=== PATIENT | male | born 1965 | race African-American/Black ===

== ENCOUNTER 2017-12-22 04:37 | Inpatient (IN) | payer MEDICAID, OTHER ==
--- NOTE | 2017-12-22 04:59 | ED ---
General Adult HPI - General Source: patient, RN notes reviewed Mode of arrival: ambulatory Limitations: no limitations <Jose Mckeon - Last Filed: 12/22/17 04:57> <Jack Morales - Last Filed: 12/22/17 09:46> - General Chief complaint: Psychiatric Symptoms Stated complaint: Mental health Time Seen by Provider: 12/22/17 04:48 - History of Present Illness Initial comments: Patient is a pleasant 52-year-old male presenting to the emergency department for mental health evaluation. Patient states he has been off his medications for around 1 month. Patient states he hears voices. Patient does have suicidal thoughts. Voices do tell him to hurt himself as well as dogs. Voices tell him to hurt all dogs and, no specific dogs. Patient does not have thoughts of hurting other people however does get angry frequently. Patient see shadows at times and does feel paranoid. Patient does have a history of similar symptoms previously associated with his schizophrenia. No physical complaints. Patient does smoke marijuana and drink alcohol. (Jose Mckeon) - Related Data Home Medications Medication Instructions Recorded Confirmed No Known Home Medications [No 12/22/17 12/22/17 Known Home Medications] Allergies Allergy/AdvReac Type Severity Reaction Status Date / Time No Known Allergies Allergy Verified 12/22/17 07:52 Review of Systems ROS Other: All systems not noted in ROS Statement are negative. Constitutional: Denies: fever Eyes: Denies: eye pain ENT: Denies: ear pain Respiratory: Denies: cough Cardiovascular: Denies: chest pain Endocrine: Denies: fatigue Gastrointestinal: Denies: abdominal pain Genitourinary: Denies: dysuria Musculoskeletal: Denies: back pain Skin: Denies: rash Neurological: Denies: weakness Psychiatric: Reports: auditory hallucinations, visual hallucinations, suicidal thoughts <Jose Mckeon - Last Filed: 12/22/17 04:57> ROS Other: All systems not noted in ROS Statement are negative. <Jack Morales - Last Filed: 12/22/17 09:46> ROS Statement: Those systems with pertinent positive or pertinent negative responses have been documented in the HPI. Past Medical History Past Medical History: Hypertension History of Any Multi-Drug Resistant Organisms: None Reported Past Surgical History: No Surgical Hx Reported Past Psychological History: PTSD, Schizophrenia Smoking Status: Current every day smoker Past Alcohol Use History: Daily Past Drug Use History: Marijuana <Jose Mckeon - Last Filed: 12/22/17 04:57> General Exam Limitations: no limitations General appearance: alert, in no apparent distress Head exam: Present: atraumatic Eye exam: Present: normal appearance Neck exam: Present: normal inspection Respiratory exam: Present: normal lung sounds bilaterally Cardiovascular Exam: Present: regular rate, normal rhythm GI/Abdominal exam: Present: soft. Absent: tenderness Extremities exam: Present: normal inspection Neurological exam: Present: alert. Absent: motor sensory deficit Psychiatric exam: Present: normal affect, normal mood Skin exam: Present: normal color <Jose Mckeon - Last Filed: 12/22/17 04:57> Course <Joes Mckeon - Last Filed: 12/22/17 04:57> <Jack Morales - Last Filed: 12/22/17 09:46> Vital Signs 12/22/17 12/22/17 04:40 09:36 Temperature 98.0 F 97.4 F L Pulse Rate 74 78 Respiratory 17 17 Rate Blood Pressure 123/66 109/54 O2 Sat by Pulse 98 96 Oximetry EPS informed me about the patient's admission at around 9:30 AM (Jack Morales) Disposition <Jose Mckeon - Last Filed: 12/22/17 04:57> <Jack Morales - Last Filed: 12/22/17 09:46> Clinical Impression: Psychosis Disposition: ADMITTED IP TO THIS HOSP Condition: Fair
[2017-12-22 10:12] LABS: Amphetamine Screen,Urine Not Detected (NotDetected); Barbiturate Screen,Urine Not Detected (NotDetected); Benzodiazepines Screen,Urine Not Detected (NotDetected); Cocaine Screen,Urine Detected (NotDetected); Methadone Screen, Urine Not Detected (NotDetected); Opiate Screen,Urine Not Detected (NotDetected); Oxycodone Screen, Urine Not Detected (NotDetected); Phencyclidine Screen,Urine Not Detected (NotDetected); Tricyclic Antidepressant,Urine Not Detected (NotDetected); Urn Cannabinoid Scrn Detected (NotDetected)
[2017-12-22] MEDS ORDERED: ZIPRASIDONE 20 MG VIAL IM PRN (10:20)
[2017-12-22] MEDS ORDERED: LORazepam 1 MG TAB PO PRN ×2 (10:20→20:32)
[2017-12-22] MEDS ORDERED: MAGNESIUM HYDROXIDE 2,400 MG/10 ML CUP PO PRN (10:20)
[2017-12-22] MEDS ORDERED: MAG HYDROX/AL HYDROX/SIMETH 30 ML CUP PO PRN (10:20)
[2017-12-22] MEDS: NICOTINE 21MG/24HR PATCH TRANSDERM SCH (11:16)
[2017-12-22 11:31] LABS: Amorphous Sediment,Urine Rare /hpf; Appearance,Urine Turbid (Clear); Bilirubin,Urine Negative (Negative); Blood,Urine Negative (Negative); Color,Urine Yellow; Glucose,Urine (UA) Negative (Negative); Ketones,Urine Trace (Negative); Leukocyte Esterase,Urine Negative (Negative); Mucus,Urine Rare /hpf; Nitrite,Urine Negative (Negative); Protein,Urine Negative (Negative); RBC,Urine 5 /hpf (0-5); Specific Gravity,Urine 1.024 (1.001-1.035); Squamous Epithelial Cell,Urine 3 /hpf (0-4); Uric Acid Crystals,Urine Moderate /hpf; WBC,Urine 1 /hpf (0-5)
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
[2017-12-22 13:12] VITALS: BMI 25.4
[2017-12-22] MEDS: ACETAMINOPHEN TAB 325 MG TAB PO PRN (18:42)
[2017-12-22] MEDS ORDERED: LORazepam 2 MG/ML INJ IM PRN (20:33)
[2017-12-22] MEDS: OLANZapine 5 MG TAB PO SCH (20:51)
--- NOTE | 2017-12-22 20:51 | P.HPMEDMHU ---
History of Present Illness H&P Date: 12/22/17 Chief Complaint: suicidal ideations This is a 52 y/o male with hx of ETOH abuse that was admitted for suicidal ideations. Patient drinks 2 fifths daily Review of Systems no abdominal pain, no nausea, no vomiting all 10 systems reviewed were negative except for what was mentioned in hpi Past Medical History Past Medical History: Hypertension Additional Past Medical History / Comment(s): Migraines, L knee arthritis, "blood clot" on his brain as a with surgery to remove and in hospital 6 months-states has caused some memory issues. History of Any Multi-Drug Resistant Organisms: None Reported Past Surgical History: No Surgical Hx Reported Additional Past Surgical History / Comment(s): Blood clot removed from brain as , colonoscopy. Past Anesthesia/Blood Transfusion Reactions: No Reported Reaction Smoking Status: Current every day smoker - Past Family History Father Additional Family Medical History / Comment(s): Father of a heroin overdose. Mother Family Medical History: Dementia Medications and Allergies Home Medications Medication Instructions Recorded Confirmed Type No Known Home Medications [No 12/22/17 12/22/17 History Known Home Medications] Allergies Allergy/AdvReac Type Severity Reaction Status Date / Time No Known Allergies Allergy Verified 12/22/17 10:24 Physical Exam Vitals: Vital Signs Temp Pulse Pulse Resp BP BP Pulse Ox 12/22/17 10:25 97.8 F 74 16 125/68 98 12/22/17 09:36 97.4 F L 78 17 109/54 96 12/22/17 04:40 98.0 F 74 17 123/66 98 Intake and Output 12/22/17 12/22/17 12/22/17 06:59 14:59 22:59 Other: Weight 78.018 kg 78.018 kg - Constitutional General appearance: no acute distress - EENT Eyes: PERRLA ENT: normal oropharynx - Neck Neck: no lymphadenopathy, no rigidity, no stridor - Respiratory Respiratory: bilateral: CTA, negative: rhonchi, wheezing - Cardiovascular Rhythm: regular Heart sounds: normal: S1, S2 foot Peripheral Edema: absent: None leg Peripheral Edema: absent: None - Gastrointestinal General gastrointestinal: normal bowel sounds, no tenderness - Integumentary Integumentary: normal - Neurologic tremors on exam Neurologic: CNII-XII intact - Musculoskeletal Musculoskeletal: gait normal - Psychiatric Psychiatric: A&O x's 3 Cranial Nerve Examination - Cranial Nerves Cranial Nerve II- Optic: Intact Cranial Nerve III- Oculomotor: Intact Cranial Nerve IV- Trochlear: Intact Cranial Nerve V- Trigeminal: Intact Cranial Nerve - Abducens: Intact Cranial Nerve VII- Facial: Intact Cranial Nerve VIII- Auditory: Intact Cranial Nerve IX- Glossopharyngeal: Intact Cranial Nerve X- Vagus: Intact Cranial Nerve XI- Accessory: Intact Cranial Nerve XII- Hypoglossal: Intact Results Labs: Abnormal Lab Results - Last 24 Hours (Table) 12/22/17 12/22/17 Range/Units 09:30 09:30 Urine Ketones Trace H (Negative) Uric Acid Crystals Moderate H (None) /hpf Amorphous Sediment Rare H (None) /hpf Urine Mucus Rare H (None) /hpf Urine Cocaine Screen Detected H (NotDetected) U Marijuana (THC) Screen Detected H (NotDetected) Thrombosis Risk Factor Assmnt - Choose All That Apply Any of the Below Risk Factors Present?: Yes Other Risk Factors: No Other congenital or acquired thrombophilia - If yes, enter type in comment: No Assessment and Plan (1) Alcohol withdrawal Narrative/Plan: start CIWA Current Visit: Yes Status: Acute Code(s): F10.239 - ALCOHOL DEPENDENCE WITH WITHDRAWAL, UNSPECIFIED SNOMED Code(s): 239342910 (2) Suicidal ideation Narrative/Plan: per psych Current Visit: Yes Status: Acute Code(s): R45.851 - SUICIDAL IDEATIONS SNOMED Code(s): 1191449 (3) Alcohol abuse Narrative/Plan: patient interested in quitting Current Visit: Yes Status: Acute Code(s): F10.10 - ALCOHOL ABUSE, UNCOMPLICATED SNOMED Code(s): 62506643
[2017-12-23] MEDS: NICOTINE 21MG/24HR PATCH TRANSDERM SCH (08:17)
[2017-12-23 09:14] LABS: Basophils % (A) 0 %; Eosinophils # (A) 0.2 k/uL (0-0.7); Eosinophils % (A) 3 %; Lymphocytes % (A) 27 %; MCH 28.5 pg (25.0-35.0); Mean Platelet Volume 6.8; Monocytes # (A) 0.4 k/uL (0-1.0); Monocytes % (A) 6 %; Neutrophils # (A) 4.4 k/uL (1.3-7.7); Neutrophils % (A) 62 %; Platelet Count 314 k/uL (150-450); RDW 13.6 % (11.5-15.5); WBC 7.2 k/uL (3.8-10.6)
[2017-12-23 09:36] LABS: ALT 18 U/L (21-72); AST 20 U/L (17-59); Albumin 3.9 g/dL (3.5-5.0); Alkaline Phosphatase 96 U/L (38-126); Anion Gap 9 mmol/L; Bilirubin, Delta 0.4 mg/dL (0.0-0.2); Bilirubin,Unconjugated 0.5 mg/dL (0.0-1.1); Blood Urea Nitrogen 14 mg/dL (9-20); Calcium 9.3 mg/dL (8.4-10.2); Carbon Dioxide 29 mmol/L (22-30); Chloride 102 mmol/L (98-107); Cholesterol 189 mg/dL (<200); Glucose 113 mg/dL (74-99); HDL Cholesterol 89 mg/dL (40-60); LDL Cholesterol,Calculated 72 mg/dL (0-99); Potassium 4.9 mmol/L (3.5-5.1); Sodium 140 mmol/L (137-145); Total Bilirubin 0.9 mg/dL (0.2-1.3); Total Protein 7.7 g/dL (6.3-8.2); Triglycerides 142 mg/dL (<150)
[2017-12-23] MEDS ORDERED: hydrOXYzine PAMOATE 25 MG CAP PO PRN (09:39)
--- NOTE | 2017-12-23 09:51 | P.PN ---
Progress Note - Text Progress Note Date: 12/23/17 Patient was seen for follow-up examination. He was laying down in his bed when I called him. When I asked him for the reasons for laying down and not going to the group, he said he was in the group, was called to sign some papers and then he did not return to the group. He was again advised to go to the groups and school. He is still going on. After a few minutes he got up and went in a different direction than going towards a group. He said he took Zyprexa 5 mg last night at night 8 made him sleep quite soundly. He said the voices have RV slowed down and that he can handle them today. He had a physical examination by general medical doctor yesterday who had put him on when necessary Ativan by mouth and IM in spite of the fact that this patient has an extensive history of alcohol and drug abuse along with extensive history of antisocial behavior. This is a black ambulatory male with fair hygiene. He is fairly cooperative. He does not show any psychomotor agitation or retardation. His speech is spontaneous and goal-directed. His mood is euthymic to cheerful and affect is appropriate. He denies suicide and homicide thoughts. He reports of auditory hallucinations but he does not have any objective signs of psychosis. He is fairly well oriented with adequate memory concentration etc. Plan: Change when necessary Ativan to when necessary Vistaril. Continue Zyprexa 5 mg at bedtime, groups and other therapies.
[2017-12-23] MEDS: ACETAMINOPHEN TAB 325 MG TAB PO PRN (13:40)
[2017-12-23] MEDS: LORazepam 1 MG TAB PO PRN ×2 (13:54→17:51)
[2017-12-23 17:39] LABS: Hemoglobin A1C 4.7 % (4.0-6.0)
[2017-12-23] MEDS: OLANZapine 5 MG TAB PO SCH (20:52)
[2017-12-24] MEDS: LORazepam 1 MG TAB PO PRN ×2 (09:24→16:56)
[2017-12-24] MEDS: NICOTINE 21MG/24HR PATCH TRANSDERM SCH (09:24)
--- NOTE | 2017-12-24 09:43 | P.PN ---
Progress Note - Text Progress Note Date: 12/24/17 Interval History: Patient is a 52-year-old male who is being seen in [facility] over the weekend. Patient reports that he continues to hear auditory hallucinations that tell him to hurt dogs and he is trying to resist the voices. He states that he is feeling a little shaky, had night sweats last night but no nausea and vomiting and is able to eat without difficulty. Patient reports that he slept fairly well last evening. Patient states that he continues to have thoughts that people are out to try to hurt him and this is why he always stays secluded. Mental Status: Appearance/Attitude: Patient is dressed in a hospital gown, makes good eye contact and was cooperative. Behavior: Patient did not exhibit any psychomotor agitation or retardation. Speech/Language: Patient's speech was spontaneous of normal volume and rhythm and he was coherent Thought Process: Patient was goal-directed there is no evidence of loose association or flight of ideas. Thought Content: Patient states that the auditory hallucinations persist and they keep telling him to hurt dogs but he resists, he denies any visual hallucination and states that he is paranoid that people are trying to hurt him and this is why he always stays secluded. Patient states that he had night sweats last night, no nausea and vomiting and some tremulousness this morning. Patient states that he did eat this morning and has had no difficulty with his appetite. He reports no side effects from the medication. Suicidal/Homicidal Ideation: Patient denies any suicidal or homicidal ideation at this time Sensorium/Cognition: Patient is alert and oriented to person, place, and time and his recent and remote memory are grossly intact Mood/Affect: Patient's mood is slightly guarded and his affect is appropriate to his mood Insight/Judgment: Patient's insight and judgment are fair Assessment: Patient reports he continues to have auditory hallucination and states that he resists the voices telling him to hurt dogs. Patient requested that his Zyprexa be increased. Patient states that he is having night sweats and some tremulousness but is able to eat and reports no nausea and vomiting. Patient has been taking Ativan as needed for withdrawal symptoms. Patient states he will try to attend groups and activities. Plan: Will increase patient's Zyprexa to 7-1/2 mg at bedtime, patient states he was taking 10 mg at bedtime in the past. Patient will continue on Ativan as needed for withdrawal symptoms. Patient continues to require hospitalization to further target his psychotic symptoms.
[2017-12-24] MEDS: ACETAMINOPHEN TAB 325 MG TAB PO PRN (16:59)
[2017-12-24] MEDS: AMMONIUM LACTATE 12% LOTION 225 GM BTL TOPICAL SCH (20:03)
[2017-12-24] MEDS: OLANZapine 2.5 MG TAB PO SCH (20:03)
[2017-12-25 06:53] VITALS: RESP 16
[2017-12-25] MEDS: NICOTINE 21MG/24HR PATCH TRANSDERM SCH (09:49)
[2017-12-25] MEDS: ACETAMINOPHEN TAB 325 MG TAB PO PRN (09:50)
[2017-12-25] MEDS: LORazepam 1 MG TAB PO PRN (09:50)
[2017-12-25] MEDS: AMMONIUM LACTATE 12% LOTION 225 GM BTL TOPICAL SCH ×2 (09:51→20:24)
[2017-12-25] MEDS: CLOTRIMAZOLE 1% CREAM 15 GM TUBE TOPICAL SCH ×2 (09:51→20:24)
--- NOTE | 2017-12-25 11:03 | P.PN ---
Progress Note - Text Progress Note Date: 12/25/17 Interval History: Patient is a 52-year-old male who is being seen in weekend coverage. Patient states that he did not have any night sweats and is not as shaky this morning. He states that he is interested in attending inpatient alcohol rehab after discharge. Patient states that the increase in the Zyprexa has decreased the auditory hallucinations and he thinks he slept better last night because of that. Patient reports that he is eating better and did not report any nausea. Patient had no other complaints at this time. Mental Status: Appearance/Attitude: Patient is dressed in a hospital gown, makes good eye contact and is cooperative. Behavior: Patient does not exhibit any psychomotor agitation or retardation. Speech/Language: Patient's speech is spontaneous of normal volume and rhythm and he is coherent. Thought Process: Patient is goal-directed there is no evidence of loose associations or flight of ideas. Thought Content: Patient denies any visual hallucinations and states that the auditory hallucinations are decreasing and he is able to ignore them. He denies any paranoid or delusional ideation. Patient states that he slept better last night, hadnight sweats and is not as tremulous this morning. He states that his sleep was better. Suicidal/Homicidal Ideation: Patient reports no current suicidal or homicidal ideation Sensorium/Cognition: Patient is alert and oriented to person, place, and time and his recent and remote memory are grossly intact. Mood/Affect: Patient's mood is pleasant and his affect is appropriate Insight/Judgment: Patient's insight and judgment are fair Assessment: Patient states that he is interested in inpatient alcohol rehab after his release from the hospital. Patient states that the increase in the Zyprexa decreased the auditory hallucinations and he is able to ignore them. He states he is feeling better this morning is less tremulous, and reports no nausea and states that he did not have any night sweats and his sleep was much better. Patient states that he is feeling better and his vital signs are improved. He reported no side effects from the medication. Plan: Patient will continue on Zyprexa 7-1/2 mg at bedtime and patient will discuss inpatient alcohol rehab with social work. Patient continues to require hospitalization to further stabilize his mood and psychotic symptoms. Patient was encouraged to attend groups and activities.
[2017-12-25] MEDS: OLANZapine 2.5 MG TAB PO SCH (20:32)
[2017-12-26 06:39] VITALS: BP 107/56; PULSE 57; TEMP 97.9
[2017-12-26] MEDS: AMMONIUM LACTATE 12% LOTION 225 GM BTL TOPICAL SCH (08:55)
[2017-12-26] MEDS: NICOTINE 21MG/24HR PATCH TRANSDERM SCH (08:55)
[2017-12-26] MEDS: CLOTRIMAZOLE 1% CREAM 15 GM TUBE TOPICAL SCH (08:55)
--- NOTE | 2017-12-26 11:31 | P.DS ---
Providers Date of admission: 12/22/17 09:34 Expected date of discharge: 12/26/17 Attending physician: Luz Marina Ambrosio Consults: 12/22/17 10:20 Consult Physician Routine Consulting Provider: Daryl Physician Consult Reason/Comments: H & P and medical care Do you want consulting provider notified?: Yes Primary care physician: Stated None Hospital Course: Patient had his psychiatric evaluation, physical examination and psychosocial evaluation. After psychiatric evaluation he was started on Zyprexa 5 mg at bedtime per his request for his reported hallucinations. He took Zyprexa without any adverse effect. It was increased to 7.5 mg a day by the weekend psychiatrist. He received when necessary Ativan for withdrawal symptoms from alcohol. Patient attended groups and interacted with peers and staff. He did not show any behavior problems, continued to feel better and has been free of suicide thoughts. Apparently he was in rehab a month ago before he went to the [facility]. He said he cannot afford to go back to [facility] since he does not have any money to pay them $100 a week. When he was asked how did it pay when he was staying here, he said food stamps. But when he was told that he cannot pay the rent with food stamps he sascha a blank. He also said he wants to go to rehab. He was advised to apply for the rehab and go to the intermediate before he can go to the rehab. Patient was treated for tenia pedis with Lotrimin and ammonium lactate lotions. Condition on discharge: This is a black ambulatory male with strong foot and breath odor. He does not show any psychomotor agitation or retardation. His speech is spontaneous relevant and goal-directed. His mood is euthymic to cheerful and affect is appropriate. He denies suicide and homicide thoughts. He does not have any clinical evidence of hallucinations or delusional thinking. He is well oriented with adequate memory concentration general fund of knowledge etc. His insight and judgment are improving. Diagnosis on discharge: Adjustment disorder unspecified F 43.20. Alcohol use disorder severe F 10.20. Cannabis use disorder moderate to severe F 12.20. Cocaine use disorder moderate to severe F 14.20. Antisocial personality disorder F 60.2. Probable malingering Z 76.5. NKDA. Tenia pedis. 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 Patient Condition at Discharge: Stable Plan - Discharge Summary Discharge Rx Participant: No New Discharge Prescriptions: New Ammonium Lactate Lotion [Lac-Hydrin 12% Lotion] 1 applic TOPICAL BID 30 Days #60 applic Clotrimazole Cream [Lotrimin Cream] 1 applic TOPICAL BID 30 Days #60 applic OLANZapine [ZyPREXA] 7.5 mg PO HS 30 Days #30 tab Discharge Medication List Ammonium Lactate Lotion [Lac-Hydrin 12% Lotion] 1 applic TOPICAL BID 30 Days # 60 applic 12/26/17 [Rx] Clotrimazole Cream [Lotrimin Cream] 1 applic TOPICAL BID 30 Days #60 applic 03/08 [Rx] OLANZapine [ZyPREXA] 7.5 mg PO HS 30 Days #30 tab 12/26/17 [Rx] Follow up Appointment(s)/Referral(s): None,Stated [Primary Care Provider] - 1-2 days
== END 2017-12-26 14:44 | disposition home or self-care (01) | DRG 882 ==
LOC: EC 04:37 → 3MHU 09:34
PROVIDERS: ADMIT Psychiatry & Neurology Psychiatry; ATTEND Psychiatry & Neurology Psychiatry
DX: F43.20 Adjustment disorder, unspecified (principal); R45.851 Suicidal ideations; F60.2 Antisocial personality disorder; G47.00 Insomnia, unspecified; I10 Essential (primary) hypertension; M17.11 Unilateral primary osteoarthritis, right knee; F43.10 Post-traumatic stress disorder, unspecified; F17.200 Nicotine dependence, unspecified, uncomplicated; F12.90 Cannabis use, unspecified, uncomplicated; F14.90 Cocaine use, unspecified, uncomplicated; Z76.5 Malingerer [conscious simulation]; Z72.89 Other problems related to lifestyle; Z82.0 Family history of epilepsy and other diseases of the nervous system; Z82.49 Family history of ischemic heart disease and other diseases of the circulatory system; Z81.8 Family history of other mental and behavioral disorders
CPT/HCPCS: 80053; 80061; 80306; 81001; 82075; 82248; 83036; 84443; 85025; 99285

== ENCOUNTER 2018-04-22 14:46 | Inpatient (IN) | payer MEDICAID, OTHER ==
--- NOTE | 2018-04-22 15:22 | ED ---
General Adult HPI - General Chief complaint: Psychiatric Symptoms Stated complaint: EPS eval Time Seen by Provider: 04/22/18 14:50 Source: patient, RN notes reviewed Mode of arrival: ambulatory Limitations: no limitations - History of Present Illness Initial comments: This is a 52-year-old male with past medical history significant for mental illness. Patient comes in today because been out of his medication for the last 4 months he states more recently he's been hearing more more voices are telling him to hurt himself and he is becoming fearful that he might hurt himself. Patient states today he drank about a fifth a day. Patient also states he did cocaine 2 nights ago. Patient states he hasn't drink at all today. Patient denies any physical complaints today. Patient denies headache patient denies numbness weakness. Patient denies any lightheadedness dizziness or near syncopal episode. Patient denies any chest pain difficulty breathing shortness of breath or palpitations. Patient denies any recent fever chills or cough. Patient denies abdominal pain patient denies nausea vomiting diarrhea. Patient denies any skin lesions rashes or any areas of erythema. Patient denies any recent injury or trauma. - Related Data Home Medications Medication Instructions Recorded Confirmed No Known Home Medications 04/22/18 04/22/18 Allergies Allergy/AdvReac Type Severity Reaction Status Date / Time No Known Allergies Allergy Verified 04/22/18 15:39 Review of Systems ROS Statement: Those systems with pertinent positive or pertinent negative responses have been documented in the HPI. ROS Other: All systems not noted in ROS Statement are negative. Past Medical History Past Medical History: Hypertension Additional Past Medical History / Comment(s): Migraines, L knee arthritis, "blood clot" on his brain as a with surgery to remove and in hospital 6 months-states has caused some memory issues. History of Any Multi-Drug Resistant Organisms: None Reported Past Surgical History: No Surgical Hx Reported Additional Past Surgical History / Comment(s): Blood clot removed from brain as , colonoscopy. Past Anesthesia/Blood Transfusion Reactions: No Reported Reaction Past Psychological History: PTSD, Schizophrenia Smoking Status: Current every day smoker Past Alcohol Use History: None Reported Past Drug Use History: None Reported - Past Family History Father Additional Family Medical History / Comment(s): Father of a heroin overdose. Mother Family Medical History: Dementia General Exam - General Exam Comments Initial Comments: GENERAL: Patient is well-developed and well-nourished. Patient is nontoxic and well- hydrated and is in no acute distress. ENT: Neck is soft and supple. No significant lymphadenopathy is noted. Oropharynx is clear. Moist mucous membranes. Neck has full range of motion without eliciting any pain. EYES: The sclera were anicteric and conjunctiva were pink and moist. Extraocular movements were intact and pupils were equal round and reactive to light. Eyelids were unremarkable. PULMONARY: Unlabored respirations. Good breath sounds bilaterally. No audible rales rhonchi or wheezing was noted. CARDIOVASCULAR: There is a regular rate and rhythm without any murmurs gallops or rubs. ABDOMEN: Soft and nontender with normal bowel sounds. No palpable organomegaly was noted. There is no palpable pulsatile mass. SKIN: Skin is clear with no lesions or rashes and otherwise unremarkable. NEUROLOGIC: Patient is alert and oriented x3. Cranial nerves II through XII are grossly intact. Motor and sensory are also intact. Normal speech, volume and content. Symmetrical smile. MUSCULOSKELETAL: Normal extremities with adequate strength and full range of motion. No lower extremity swelling or edema. No calf tenderness. LYMPHATICS: No significant lymphadenopathy is noted PSYCHIATRIC: Patient states she's having suicidal thoughts he is hearing voices lately that are encouraging to follow through. Limitations: no limitations Course Vital Signs 04/22/18 15:01 Temperature 98.5 F Pulse Rate 87 Respiratory 18 Rate Blood Pressure 99/49 O2 Sat by Pulse 100 Oximetry Medical Decision Making - Lab Data Lab Results 04/22/18 Range/Units 15:30 Urine Opiates Screen Not Detected (NotDetected) Ur Oxycodone Screen Not Detected (NotDetected) Urine Methadone Screen Not Detected (NotDetected) Ur Propoxyphene Screen Not Detected (NotDetected) Ur Barbiturates Screen Not Detected (NotDetected) U Tricyclic Antidepress Not Detected (NotDetected) Ur Phencyclidine Scrn Not Detected (NotDetected) Ur Amphetamines Screen Not Detected (NotDetected) U Methamphetamines Scrn Not Detected (NotDetected) U Benzodiazepines Scrn Not Detected (NotDetected) Urine Cocaine Screen Detected H (NotDetected) U Marijuana (THC) Screen Detected H (NotDetected) Disposition Clinical Impression: Suicidal ideation, Depression, Acute psychosis Disposition: ADMITTED IP TO THIS HOSP Referrals: None,Stated [Primary Care Provider] - 1-2 days Time of Disposition: 15:58
[2018-04-22 15:56] LABS: Amphetamine Screen,Urine Not Detected (NotDetected); Barbiturate Screen,Urine Not Detected (NotDetected); Benzodiazepines Screen,Urine Not Detected (NotDetected); Cocaine Screen,Urine Detected (NotDetected); Methadone Screen, Urine Not Detected (NotDetected); Opiate Screen,Urine Not Detected (NotDetected); Oxycodone Screen, Urine Not Detected (NotDetected); Phencyclidine Screen,Urine Not Detected (NotDetected); Tricyclic Antidepressant,Urine Not Detected (NotDetected); Urn Cannabinoid Scrn Detected (NotDetected)
[2018-04-22 17:03] VITALS: BMI 25.6
[2018-04-22] MEDS ORDERED: MAGNESIUM HYDROXIDE 2,400 MG/10 ML CUP PO PRN (18:44)
[2018-04-22] MEDS ORDERED: ZIPRASIDONE 20 MG VIAL IM PRN (18:44)
[2018-04-22] MEDS ORDERED: MAG HYDROX/AL HYDROX/SIMETH 30 ML CUP PO PRN (18:44)
[2018-04-22] MEDS ORDERED: LORazepam 2 MG/ML INJ IM PRN (18:47)
--- NOTE | 2018-04-22 22:17 | P.MDCNMH ---
History of Present Illness H&P Date: 04/22/18 Chief Complaint: medical management 52-year-old male with past medical history of hypertension. Patient presented to the hospital due to suicidal ideation. Patient claims hearing voices telling him to hurt himself he was planning on cutting his wrist. He has history of schizophrenia and he has been noncompliant with his medications for the past 4 months. He also admits to using cocaine last and use it was 2 days ago. Patient also drinks alcohol on regular basis. He currently denies any other medical concerns he denies any headache fevers chills coughing chest pain trouble breathing he denies any abdominal pain nausea vomiting or changes in his bowel or urinary habits. Review of Systems Pertinent positives as noted in HPI. All other systems were reviewed and are negative Past Medical History Past Medical History: Hypertension Additional Past Medical History / Comment(s): Migraines, L knee arthritis, "blood clot" on his brain as a with surgery to remove and in hospital 6 months-states has caused some memory issues. History of Any Multi-Drug Resistant Organisms: None Reported Past Surgical History: No Surgical Hx Reported Additional Past Surgical History / Comment(s): Blood clot removed from brain as , colonoscopy. Past Anesthesia/Blood Transfusion Reactions: No Reported Reaction Past Psychological History: PTSD, Schizophrenia Additional Psychological History / Comment(s): Pt resides in what he say is kind of like a assisted. He uses no assistive device. He has no set key driver's license, he walks or takes the bus to appointments. He is unemployed. Pt states he has had thoughts of suicide but not a specific plan. He states he was hearing voices and seeing things but not currently. Smoking Status: Current every day smoker Past Alcohol Use History: None Reported Additional Past Alcohol Use History / Comment(s): Pt started smoking in 1976 and is a 2 ppd smoker. Pt states he drinks one fifth of liqour daily and last drank yesterday. Past Drug Use History: None Reported Additional Drug Use History / Comment(s): Pt states he occasionally smokes marijuana. - Past Family History Father Additional Family Medical History / Comment(s): Father of a heroin overdose. Mother Family Medical History: Dementia Medications and Allergies Home Medications Medication Instructions Recorded Confirmed Type No Known Home Medications 04/22/18 04/22/18 History Allergies Allergy/AdvReac Type Severity Reaction Status Date / Time No Known Allergies Allergy Verified 04/22/18 15:39 Physical Exam Vitals: Vital Signs Temp Pulse Pulse Resp BP BP Pulse Ox 04/22/18 16:54 98.6 F 69 20 145/76 99 04/22/18 15:01 98.5 F 87 18 99/49 100 Intake and Output 04/22/18 04/22/18 04/22/18 06:59 14:59 22:59 Other: Weight 78.7 kg Constitutional: No acute distress, conversant, pleasant Eyes: Anicteric sclerae, moist conjunctiva, no lid-lag Pupils equal round reactive to light ENMT: NC/AT Oropharynx clear, no erythema, exudates Neck: Supple, FROM, no masses, or JVD No carotid bruits No thyromegaly Lungs: Clear to auscultation Clear to percussion Normal respiratory effort, no accessory muscle use Cardiovascular: Heart regular in rate and rhythm, No murmurs, gallops, or rubs No peripheral edema Abdominal: Soft Nontender, no guarding, rebound or rigidity Abdomen moving with respiration Normoactive bowel sounds No hepatomegaly, No splenomegaly No palpable mass No abdominal wall hernia noted Skin: Normal temperature, tone, texture, turgor No induration No subcutaneous nodules No rash, lesions No ulcers Extremities: No digital cyanosis No clubbing Pedal pulses intact and symmetrical Radial pulses intact and symmetrical No calf tenderness Psychiatric: Alert and oriented to person, place and time Appropriate affect Poor judgment Neuro Muscles Strength 5/5 in all 4 extremities Sensation to light touch grossly present throughout Cranial nerves II-XII grossly intact No focal sensory deficits Lymphatics: no palpable cervical or supraclavicular , or inguinal lymph nodes Cranial Nerve Examination - Cranial Nerves Cranial Nerve II- Optic: Intact Cranial Nerve III- Oculomotor: Intact Cranial Nerve IV- Trochlear: Intact Cranial Nerve V- Trigeminal: Intact Cranial Nerve - Abducens: Intact Cranial Nerve VII- Facial: Intact Cranial Nerve VIII- Auditory: Intact Cranial Nerve IX- Glossopharyngeal: Intact Cranial Nerve X- Vagus: Intact Cranial Nerve XI- Accessory: Intact Cranial Nerve XII- Hypoglossal: Intact Results Labs: Abnormal Lab Results - Last 24 Hours (Table) 04/22/18 Range/Units 15:30 Urine Cocaine Screen Detected H (NotDetected) U Marijuana (THC) Screen Detected H (NotDetected) Assessment and Plan Assessment: 52-year-old male with history of hypertension and schizophrenia patient presented due to suicidal thoughts and hearing voices telling him to hurt himself. Patient has history of schizophrenia and has been noncompliant with his medications. Medicine was counseled for medical management, currently denies any medical concerns. Patient also admits to using cocaine, he also admits to drinking alcohol on regular basis. Patient will be placed on alcohol withdrawal precautions, fall and seizure precautions. Plan: History of schizophrenia noncompliant with medications Suicidal ideation Suicide precautions Management per psych History of hypertension Blood pressure currently controlled off medications Continue to monitor Patient is low risk for DVT as he is ambulatory Tobacco smoking Patient counseled to quit smoking Nicotine replacement therapy offered Polysubstance abuse Patient counseled to quit drug of abuse Thank you for allowing us to participate in the care of this patient. We will follow peripherally. Do not hesitate to contact us with questions. Someone can be reached from the [facility] hospitalist group at all hours of the day at [phone].
[2018-04-23] MEDS: NICOTINE 14MG/24HR PATCH TRANSDERM SCH (08:33)
[2018-04-23 09:19] LABS: Basophils % (A) 1 %; Eosinophils # (A) 0.2 k/uL (0-0.7); Eosinophils % (A) 3 %; HCT 41.3 % (39.0-53.0); HGB 12.4 gm/dL (13.0-17.5); Hypochromasia Moderate; Lymphocytes # (A) 1.6 k/uL (1.0-4.8); Lymphocytes % (A) 25 %; MCH 28.2 pg (25.0-35.0); MCHC 30.1 g/dL (31.0-37.0); MCV 93.9 fL (80.0-100.0); Mean Platelet Volume 7.2; Monocytes # (A) 0.5 k/uL (0-1.0); Monocytes % (A) 8 %; Neutrophils # (A) 3.9 k/uL (1.3-7.7); Neutrophils % (A) 63 %; Platelet Count 245 k/uL (150-450); RDW 13.7 % (11.5-15.5); WBC 6.3 k/uL (3.8-10.6)
[2018-04-23 09:34] LABS: ALT 27 U/L (21-72); AST 24 U/L (17-59); Albumin 3.9 g/dL (3.5-5.0); Alkaline Phosphatase 76 U/L (38-126); Anion Gap 9 mmol/L; Blood Urea Nitrogen 12 mg/dL (9-20); Carbon Dioxide 31 mmol/L (22-30); Chloride 100 mmol/L (98-107); Cholesterol 160 mg/dL (<200); Glucose 133 mg/dL (74-99); HDL Cholesterol 70 mg/dL (40-60); LDL Cholesterol,Calculated 61 mg/dL (0-99); Potassium 4.5 mmol/L (3.5-5.1); Sodium 140 mmol/L (137-145); Total Bilirubin 1.7 mg/dL (0.2-1.3); Total Protein 7.5 g/dL (6.3-8.2); Triglycerides 144 mg/dL (<150)
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
[2018-04-23] MEDS: HALOPERIDOL 5 MG TAB PO SCH (14:33)
[2018-04-23] MEDS: SERTRALINE 25 MG TAB PO SCH (14:33)
[2018-04-23] MEDS: BENZTROPINE MESYLATE 0.5 MG TAB PO SCH (14:33)
[2018-04-24] MEDS: NICOTINE 14MG/24HR PATCH TRANSDERM SCH (09:00)
[2018-04-24] MEDS: HALOPERIDOL 5 MG TAB PO SCH (09:00)
[2018-04-24] MEDS: BENZTROPINE MESYLATE 0.5 MG TAB PO SCH (09:01)
[2018-04-24] MEDS: SERTRALINE 25 MG TAB PO SCH (09:01)
[2018-04-24] MEDS: LORazepam 1 MG TAB PO PRN (16:12)
[2018-04-24] MEDS: ACETAMINOPHEN TAB 325 MG TAB PO PRN (16:12)
--- NOTE | 2018-04-24 16:51 | P.PN ---
Progress Note - Text Progress Note Date: 04/24/18 Clinical Problems: Schizophrenia, alcohol use disorder, cocaine use disorder, lack of housing Interim history: I reviewed the medical record and interviewed the patient. His 51-year-old male who has a purported history of a schizophrenia presented to the psychiatric unit voluntarily with suicidal ideation, lack of housing, and paranoid ideation. During our interview he gave a different history than what he provided the admitting psychiatrist. He stated that he left a [facility] because he was unable to pay the room and board. Since he had no money to return to [place] he came to the hospital for admission. [facility] referred him to the [facility] in [place] because, he believes, he told staff at [facility] that he did not wish to return to [place]. He requested a referral to a substance abuse treatment program in [place] sedated after discharge he cannot return to live with his sister. He denied current thoughts of or suicide. He denied feeling paranoid. Mental status exam: He presented as a thin casually groomed 52-year-old - [place] male who was pleasant on approach. He made eye contact and appeared to attend to the interview. He had no prominent physical abnormalities. He had a blunted facial expression. He was alert and oriented to person, place and time. He showed slight psychomotor retardation but no abnormal movements. His speech was spontaneous with decreased rate, rhythm and volume. His speech was slightly dysarthric. His affect was blunted but stable and appropriate. He denied suicidal ideation or wishes. He denied homicidal ideation. He denied feelings of hopelessness, helplessness or worthlessness. He did not express ideas reference, paranoid ideation or delusional thoughts. His thinking was concrete but his associations were coherent and logical. He denied current auditory hallucinations and did not appear to be responding to internal stimuli. Assessment: [facility] complaints of paranoia, auditory hallucinations and suicidal ideation in the contents of multiple psychosocial and legal problems. He is denying current suicidal ideation or psychotic symptoms as requesting continued substance abuse services in [place] were following discharge she can continue to live with his family. Plan: Continue inpatient psychiatric hospitalization. Continue seeing precautions. Social work to assist with placement and aftercare services. Continue Cogentin 0.5 mg daily, Haldol 5 mg daily, and Zoloft 25 mg daily. Encourage participation in therapeutic groups and activities. Evaluate clinical status response to treatment daily basis.
[2018-04-25] MEDS: HALOPERIDOL 5 MG TAB PO SCH (09:17)
[2018-04-25] MEDS: NICOTINE 14MG/24HR PATCH TRANSDERM SCH (09:17)
[2018-04-25] MEDS: SERTRALINE 25 MG TAB PO SCH (09:17)
[2018-04-25] MEDS: BENZTROPINE MESYLATE 0.5 MG TAB PO SCH (09:17)
[2018-04-25 10:15] LABS: Hemoglobin A1C 4.9 % (4.0-6.0)
--- NOTE | 2018-04-25 15:30 | P.PN ---
Progress Note - Text Progress Note Date: 04/25/18 Clinical Problems: Schizophrenia, alcohol use disorder severe, cocaine use disorder, lack of housing Interim history: Reviewed the medical record, interviewed the patient and discuss his treatment and treatment plan during team meeting. He denied problems or concerns other than wishing to return to live with his sister in [place]. He can inquired about a referral for substance use treatment. He denied auditory hallucinations but alleged that he experiences visual hallucinations where he sees "weird animals." Creatures with a mixture of different animals who appeared to him in kaleidoscope colors. He denied visual hallucinations, ideas reference, thought insertion, thought broadcasting or thought control. He denied feeling paranoid and did not express paranoid ideation. He complained of tremor and nausea but denied other symptoms of alcohol withdrawal. Mental status exam: He presented as a thin 52-year-old [place]ian male who was pleasant on approach. He made eye contact and appeared to attend to interview. He had no distinction features are prominent physical difficulties. He did not have a hand tremor. He showed some psychomotor retardation but no abnormal movements. Her speech was not spontaneous but had normal rate, rhythm and volume. His affect was blunted but stable and appropriate. He denied suicidal ideation or wishes. He denied homicidal ideation. He denied such could depressive cognitions as hopelessness, helplessness or worthlessness. He did not express ideas reference, paranoid ideation or delusions. His thinking was concrete but his associations were coherent and logical. He did not appear to be responding to internal stimuli. Assessment: He has minimal signs and symptoms of alcohol withdrawal. He described visual hallucinations but denied other symptoms suggestive of acute psychosis. Plan: Continue inpatient psychiatric hospitalization. overhead line worker to assist with referral for substance abuse treatment. Continue Cogentin 0.5 mg daily, Haldol 5 mg daily and Zoloft 25 mg daily. Encourage participation in therapeutic groups and activities. Evaluate current status response to attend daily basis.
[2018-04-25] MEDS: LORazepam 1 MG TAB PO PRN (21:32)
[2018-04-25] MEDS: ACETAMINOPHEN TAB 325 MG TAB PO PRN (21:32)
[2018-04-26] MEDS: HALOPERIDOL 5 MG TAB PO SCH (08:19)
[2018-04-26] MEDS: SERTRALINE 25 MG TAB PO SCH (08:19)
[2018-04-26] MEDS: BENZTROPINE MESYLATE 0.5 MG TAB PO SCH (08:19)
[2018-04-26] MEDS: NICOTINE 14MG/24HR PATCH TRANSDERM SCH (08:19)
--- NOTE | 2018-04-26 15:22 | P.PN ---
Progress Note - Text Progress Note Date: 04/26/18 Clinical Problems: Schizophrenia, alcohol use disorder severe, cocaine use disorder, lack of housing Interim history: I reviewed the medical record, interviewed the patient and discuss his treatment and treatment plan during team meeting. He denied problems or concerns. He stated that the social services coordinator is assisting him with finding a rehabilitation program. The social services coordinator reported that he contacted [facility] and we have faxed medical record information to [facility]. Since [facility] is scheduling admissions approximately one week out he would need to be discharged to a correction. He slept 7 hours last night. He attended one therapeutic groups yesterday. He is been compliant with prescribed medications. Mental status exam: He presented as a thin casually groomed after Vincentian male who was pleasant on approach. He made eye contact and attended to the interview. He had a blunted facial expression. He showed slight psychomotor retardation but no abnormal movements. Her speech was not spontaneous but had normal rate, rhythm and volume. His affect was blunted but stable and appropriate. He denied suicidal ideation or wishes. He denied homicidal ideation. He denied feeling hopeless, helpless or worthless. He denied experiencing ideas reference, paranoid ideation or delusional thoughts. His thinking was concrete. Associations were coherent and logical. He denied hallucinations and did not appear to be responding to internal stimuli. Assessment: He has no apparent psychotic symptoms. He remains interested in reentering substance abuse treatment and we have submitted information to [facility]. He will need to be discharged to a correction since he has no home or family in the area. Plan: Continue inpatient hospitalization. Continue safety precautions. Continue Haldol 5 mg daily, Cogentin 0.5 mg daily and sertraline 25 mg daily. Encourage participation in therapeutic groups and activities. Evaluate clinical status response to treatment daily basis. Discharge 05/07/2018.
[2018-04-27 06:46] VITALS: BP 105/57; PULSE 54; RESP 18; TEMP 98.1
[2018-04-27] MEDS: NICOTINE 14MG/24HR PATCH TRANSDERM SCH (09:33)
[2018-04-27] MEDS: HALOPERIDOL 5 MG TAB PO SCH (09:33)
[2018-04-27] MEDS: BENZTROPINE MESYLATE 0.5 MG TAB PO SCH (09:34)
[2018-04-27] MEDS: SERTRALINE 25 MG TAB PO SCH (09:34)
== END 2018-04-27 10:01 | disposition home or self-care (01) | DRG 885 ==
LOC: EC 14:46 → 3MHU 16:04
PROVIDERS: ADMIT Psychiatry & Neurology Psychiatry; ATTEND Psychiatry & Neurology Psychiatry
DX: F20.0 Paranoid schizophrenia (principal); F10.99 Alcohol use, unspecified with unspecified alcohol-induced disorder; R45.851 Suicidal ideations; F14.99 Cocaine use, unspecified with unspecified cocaine-induced disorder; F17.200 Nicotine dependence, unspecified, uncomplicated; F43.10 Post-traumatic stress disorder, unspecified; I10 Essential (primary) hypertension; M17.12 Unilateral primary osteoarthritis, left knee; Z59.0 Homelessness; Z65.3 Problems related to other legal circumstances; Z82.0 Family history of epilepsy and other diseases of the nervous system; Z91.410 Personal history of adult physical and sexual abuse; Z91.5 Personal history of self-harm; Y63.6 Underdosing and nonadministration of necessary drug, medicament or biological substance
CPT/HCPCS: 80053; 80061; 80306; 82075; 83036; 84443; 85025; 99285